=== PATIENT | female | born 1990 | race Caucasian/White ===

== ENCOUNTER 2022-04-28 23:41 | Emergency (ER) | payer MEDICAID, SELFPAY ==
[~2022-04-28] VITALS: Ht 182.9 cm; Wt 106.8 kg
[~2022-04-28 23:41] MED LIST: ADV50250 IH; ESOM20CA PO; IBUP-1984 PO
[2022-04-29 00:40] LABS: BASOPHILS # (AUTO) 0.1 X10'3 (0-0.2); BASOPHILS % (AUTO) 0.9 % (0-1); EOSINOPHILS # (AUTO) 0.8 X10'3 (0-0.9); EOSINOPHILS % (AUTO) 6.4 % (0-6); HEMATOCRIT 38.5 % (35.0-45.0); HEMOGLOBIN 13.2 g/dl (12.0-16.0); LYMPHOCYTES # (AUTO) 2.5 X10'3 (1.1-4.8); LYMPHOCYTES % (AUTO) 19.8 % (21-51); MEAN CORPUSCULAR HEMOGLOBIN 30.5 PG (27.0-31.0); MEAN CORPUSCULAR HGB CONC 34.3 g/dL (33.0-36.5); MEAN PLATELET VOLUME 8.2 FL (7.4-10.4); MONOCYTES # (AUTO) 0.7 X10'3 (0-0.9); MONOCYTES % (AUTO) 5.7 % (2-12); NEUTROPHILS # (AUTO) 8.3 X10'3 (1.8-7.7); NEUTROPHILS % (AUTO) 67.2 % (42-75); PLATELET COUNT 326 X10'3 (140-440); RED BLOOD COUNT 4.33 X10'6 (4.20-5.60); RED CELL DISTRIBUTION WIDTH 12.2 % (11.5-14.5); WHITE BLOOD COUNT 12.4 X10'3 (4.5-11.0)
[2022-04-29 00:47] LABS: ALANINE AMINOTRANSFERASE 38 U/L (12-78); ALBUMIN 3.9 G/DL (3.4-5.0); ALKALINE PHOSPHATASE 91 IU/L (46-116); ANION GAP 10 (8-16); ASPARTATE AMINO TRANSFERASE 18 U/L (10-37); BILIRUBIN,TOTAL 0.3 MG/DL (0.1-1.0); BLOOD UREA NITROGEN 12 MG/DL (7-18); BUN/CREATININE RATIO 17.1 (6.6-38.0); CALCIUM 9.3 MG/DL (8.5-10.1); CHLORIDE 103 MMOL/L (99-107); GLUCOSE 99 MG/DL (70-104); POTASSIUM 4.4 MMOL/L (3.5-5.1); SODIUM 135 MMOL/L (135-145); TOTAL CARBON DIOXIDE 22.3 MMOL/L (24-32); eGFR > 90 ML/MIN
[2022-04-29] MEDS ORDERED: predniSONE 20 mg tablet PO ONE (03:45)
[2022-04-29] MEDS ORDERED: albuterol 2.5 MG/3 ML nebule NEB ONE (03:45)
[2022-04-29] MEDS ORDERED: LIDOcaine 4% (40 mg/ml) topical solution 50ml MM ONE (03:55)
[2022-04-29] MEDS ORDERED: acetaminophen 325mg tablet PO STA (04:24)
[2022-04-29] MEDS ORDERED: AZIT-31 PO (05:36)
[2022-04-29] MEDS ORDERED: BUDE10.27 INH (05:36)
[2022-04-29] MEDS ORDERED: ALBU18HF2 INH (05:36)
[2022-04-29] MEDS ORDERED: azithromycin 250mg tablet PO ONE (05:40)
[2022-04-29 05:53] VITALS: BP 132/70
== END 2022-04-29 05:55 | disposition home or self-care (01) ==
LOC: ER 23:42
DX: B34.9 Viral infection, unspecified (principal); R11.2 Nausea with vomiting, unspecified; J20.9 Acute bronchitis, unspecified
CPT/HCPCS: 36415; 71045; 80053; 83605; 84145; 85025; 87502; 87503; 94640; 99284; J7512; 87040; 94760

== ENCOUNTER 2022-07-27 12:57 | Emergency (ER) | payer MEDICAID ==
[~2022-07-27] VITALS: Ht 182.9 cm; Wt 101.0 kg
[~2022-07-27 12:57] MED LIST changes: +ALBU18HF2 INH; +BUDE10.27 INH
[2022-07-27 13:32] LABS: BASOPHILS # (AUTO) 0.1 X10'3 (0-0.2); BASOPHILS % (AUTO) 1.4 % (0-1); EOSINOPHILS # (AUTO) 0.5 X10'3 (0-0.9); HEMATOCRIT 40.5 % (35.0-45.0); HEMOGLOBIN 13.8 g/dl (12.0-16.0); MEAN CORPUSCULAR VOLUME 88.2 FL (78-98); MEAN PLATELET VOLUME 8.2 FL (7.4-10.4); MONOCYTES # (AUTO) 0.4 X10'3 (0-0.9); MONOCYTES % (AUTO) 4.8 % (2-12); NEUTROPHILS % (AUTO) 62.8 % (42-75); PLATELET COUNT 352 X10'3 (140-440); RED BLOOD COUNT 4.59 X10'6 (4.20-5.60); RED CELL DISTRIBUTION WIDTH 12.9 % (11.5-14.5); WHITE BLOOD COUNT 7.9 X10'3 (4.5-11.0)
[2022-07-27 13:51] LABS: ALANINE AMINOTRANSFERASE 50 U/L (12-78); ALBUMIN 4.1 G/DL (3.4-5.0); ALKALINE PHOSPHATASE 90 IU/L (46-116); ANION GAP 9 (8-16); ASPARTATE AMINO TRANSFERASE 20 U/L (10-37); BILIRUBIN,TOTAL 0.5 MG/DL (0.1-1.0); BLOOD UREA NITROGEN 7 MG/DL (7-18); BUN/CREATININE RATIO 11.1 (10.0-20.0); CALCIUM 9.2 MG/DL (8.5-10.1); CHLORIDE 103 MMOL/L (99-107); CREATININE 0.63 MG/DL (0.40-0.90); GLUCOSE 91 MG/DL (70-104); POTASSIUM 3.8 MMOL/L (3.5-5.1); SODIUM 138 MMOL/L (135-145); TOTAL CARBON DIOXIDE 25.6 MMOL/L (24-32); TOTAL PROTEIN 8.1 G/DL (6.4-8.2); eGFR > 90 ML/MIN
[2022-07-27 14:47] VITALS: BP 112/69
[2022-07-27 16:01] LABS: URINE HCG NEGATIVE (NEG)
[2022-07-27 16:08] LABS: CLARITY,URINE CLEAR (Clear); COLOR,URINE YELLOW (Yellow); GLUCOSE, URINE NEGATIVE (Neg); KETONES,URINE TRACE mg/dl (Neg); LEUKOCYTE ESTERASE ,URINE NEGATIVE (Neg); NITRITES, URINE NEGATIVE (Neg); OCCULT BLOOD,URINE NEGATIVE (Neg); PH,URINE 5.5 (4.8-8.0); PROTEIN,URINE NEGATIVE (Neg); UROBILINOGEN,URINE 0.2 E.U/dL (0.2-1.0)
[2022-07-27 16:13] LABS: UA COLLECTION TYPE CLN CATCH MIDSTREAM
== END 2022-07-27 17:09 | disposition home or self-care (01) ==
LOC: ER 12:58
DX: R07.89 Other chest pain (principal); M54.2 Cervicalgia; R68.84 Jaw pain; R20.0 Anesthesia of skin
CPT/HCPCS: 36415; 80053; 81003; 81025; 83735; 83880; 84484; 85025; 93005; 99284

== ENCOUNTER 2022-08-28 21:37 | Emergency (ER) | payer MEDICAID ==
[~2022-08-28] VITALS: Ht 182.9 cm; Wt 107.8 kg
[2022-08-28 22:04] VITALS: BP 108/61
[2022-08-28 22:37] LABS: CLARITY,URINE SLIGHTLY CLOUDY (Clear); COLOR,URINE YELLOW (Yellow); GLUCOSE, URINE NEGATIVE (Neg); KETONES,URINE NEGATIVE (Neg); LEUKOCYTE ESTERASE ,URINE NEGATIVE (Neg); NITRITES, URINE NEGATIVE (Neg); OCCULT BLOOD,URINE LARGE (Neg); PROTEIN,URINE NEGATIVE (Neg); UROBILINOGEN,URINE 0.2 E.U/dL (0.2-1.0)
[2022-08-28 22:38] LABS: URINE HCG NEGATIVE (NEG)
[2022-08-28 22:42] LABS: UA COLLECTION TYPE CLN CATCH MIDSTREAM
[2022-08-28 22:50] LABS: CAL OXALATE CRYSTALS 4+ /HPF (NEGATIVE); MUCUS STRANDS MANY /LPF (Neg); SQUAMOUS EPITHELIAL CELL,UR MODERATE /LPF (FEW)
[2022-08-28 22:51] LABS: BACTERIA,URINE FEW /HPF (Neg); WBC,URINE 0-4 /HPF (0-4)
[2022-08-29] MEDS ORDERED: ondansetron 4mg rapidly disintigrating tab PO ONE (00:45)
[2022-08-29] MEDS ORDERED: acetaminophen 325mg tablet PO ONE (00:45)
[2022-08-29] MEDS ORDERED: LIDO-15 TD (17:38)
[2022-08-29] MEDS ORDERED: IBUP-1986 PO (17:38)
== END 2022-08-29 01:53 | disposition left against medical advice (07) ==
LOC: ER 21:38
DX: R10.9 Unspecified abdominal pain (principal); R11.2 Nausea with vomiting, unspecified; Z91.040 Latex allergy status; Z79.899 Other long term (current) drug therapy; Z79.1 Long term (current) use of non-steroidal anti-inflammatories (NSAID); Z79.2 Long term (current) use of antibiotics
CPT/HCPCS: 81001; 81025; 99283

== ENCOUNTER 2022-08-29 16:37 | Emergency (ER) | payer MEDICAID ==
[~2022-08-29] VITALS: Ht 182.9 cm; Wt 101.0 kg
[2022-08-29 16:41] VITALS: BP 137/84
[2022-08-29 17:16] LABS: BASOPHILS # (AUTO) 0.1 X10'3 (0-0.2); EOSINOPHILS # (AUTO) 0.5 X10'3 (0-0.9); EOSINOPHILS % (AUTO) 6.2 % (0-6); HEMATOCRIT 38.3 % (35.0-45.0); LYMPHOCYTES % (AUTO) 26.3 % (21-51); MEAN CORPUSCULAR HEMOGLOBIN 30.4 PG (27.0-31.0); MEAN CORPUSCULAR VOLUME 89.4 FL (78-98); MONOCYTES # (AUTO) 0.4 X10'3 (0-0.9); NEUTROPHILS # (AUTO) 4.7 X10'3 (1.8-7.7); NEUTROPHILS % (AUTO) 61.5 % (42-75); PLATELET COUNT 337 X10'3 (140-440); RED BLOOD COUNT 4.28 X10'6 (4.20-5.60); RED CELL DISTRIBUTION WIDTH 13.3 % (11.5-14.5); WHITE BLOOD COUNT 7.7 X10'3 (4.5-11.0)
[2022-08-29 17:33] LABS: ALANINE AMINOTRANSFERASE 28 U/L (12-78); ALBUMIN 3.6 G/DL (3.4-5.0); ALKALINE PHOSPHATASE 87 IU/L (46-116); ANION GAP 8 (8-16); ASPARTATE AMINO TRANSFERASE 13 U/L (10-37); BILIRUBIN,TOTAL 0.3 MG/DL (0.1-1.0); BLOOD UREA NITROGEN 10 MG/DL (7-18); BUN/CREATININE RATIO 13.2 (10.0-20.0); CALCIUM 8.6 MG/DL (8.5-10.1); CHLORIDE 106 MMOL/L (99-107); CREATININE 0.76 MG/DL (0.40-0.90); GLUCOSE 109 MG/DL (70-104); POTASSIUM 3.4 MMOL/L (3.5-5.1); SODIUM 138 MMOL/L (135-145); TOTAL CARBON DIOXIDE 24.1 MMOL/L (24-32); TOTAL PROTEIN 7.3 G/DL (6.4-8.2); eGFR 88 ML/MIN
[2022-08-29] MEDS ORDERED: LIDOcaine 5% patch TP STA (17:34)
[2022-08-29] MEDS ORDERED: ketorolac trometh inj. 60 MG/2 ML VIAL IM ONE (17:35)
[2022-08-29] MEDS ORDERED: IBUP-1986 PO (17:38)
[2022-08-29] MEDS ORDERED: LIDO-15 TD (17:38)
[2022-08-29] MEDS ORDERED: ketorolac trometh. 30mg/ml inj. IM ONE (17:40)
== END 2022-08-29 18:10 | disposition home or self-care (01) ==
LOC: ER 16:38
DX: S30.1XXA Contusion of abdominal wall, initial encounter (principal); Z91.040 Latex allergy status; Z79.899 Other long term (current) drug therapy; X58.XXXA Exposure to other specified factors, initial encounter; Y93.89 Activity, other specified; Y92.89 Other specified places as the place of occurrence of the external cause; Y99.8 Other external cause status
CPT/HCPCS: 36415; 76770; 80053; 85025; 96372; 99285; J1885

== ENCOUNTER 2022-11-10 15:42 | Emergency (ER) | payer MEDICAID ==
[~2022-11-10] VITALS: Ht 182.9 cm; Wt 97.2 kg
[~2022-11-10 15:42] MED LIST changes: +IBUP-1986 PO; +LIDO-15 TD
[2022-11-10] MEDS ORDERED: normal saline 1000ML IV soln IVB ONE (18:40)
[2022-11-10] MEDS ORDERED: ondansetron/PF 4mg/2ml inj IV ONE (18:40)
[2022-11-10] MEDS ORDERED: dicyclomine 10 MG capsule PO ONE (19:25)
[2022-11-10] MEDS ORDERED: loperamide 2mg capsule PO ONE (19:25)
[2022-11-10] MEDS ORDERED: famotidine/PF 10 mg/ml inj IV ONE (19:25)
[2022-11-10 19:46] LABS: URINE HCG NEGATIVE (NEG)
[2022-11-10 19:49] LABS: BASOPHILS # (AUTO) 0.1 X10'3 (0-0.2); EOSINOPHILS # (AUTO) 0.8 X10'3 (0-0.9); EOSINOPHILS % (AUTO) 8.4 % (0-6); HEMATOCRIT 40.7 % (35.0-45.0); HEMOGLOBIN 13.9 g/dl (12.0-16.0); LYMPHOCYTES # (AUTO) 2.8 X10'3 (1.1-4.8); LYMPHOCYTES % (AUTO) 30.9 % (21-51); MEAN CORPUSCULAR HEMOGLOBIN 30.6 PG (27.0-31.0); MEAN CORPUSCULAR HGB CONC 34.2 g/dL (33.0-36.5); MEAN CORPUSCULAR VOLUME 89.3 FL (78-98); MEAN PLATELET VOLUME 8.1 FL (7.4-10.4); MONOCYTES # (AUTO) 0.6 X10'3 (0-0.9); NEUTROPHILS # (AUTO) 4.9 X10'3 (1.8-7.7); NEUTROPHILS % (AUTO) 53.7 % (42-75); PLATELET COUNT 325 X10'3 (140-440); RED BLOOD COUNT 4.55 X10'6 (4.20-5.60); RED CELL DISTRIBUTION WIDTH 12.9 % (11.5-14.5); WHITE BLOOD COUNT 9.1 X10'3 (4.5-11.0)
[2022-11-10 19:51] LABS: COLOR,URINE YELLOW (Yellow); GLUCOSE, URINE NEGATIVE (Neg); KETONES,URINE NEGATIVE (Neg); LEUKOCYTE ESTERASE ,URINE NEGATIVE (Neg); NITRITES, URINE NEGATIVE (Neg); OCCULT BLOOD,URINE NEGATIVE (Neg); PROTEIN,URINE NEGATIVE (Neg); UROBILINOGEN,URINE 0.2 E.U/dL (0.2-1.0)
[2022-11-10] MEDS ORDERED: proCHLORperazine 10 MG/2 ml inj IV ONE (19:55)
[2022-11-10 19:58] LABS: CLARITY,URINE SLIGHTLY CLOUDY (Clear); UA COLLECTION TYPE CLN CATCH MIDSTREAM
[2022-11-10 19:59] LABS: BACTERIA,URINE NONE SEEN /HPF (Neg); MUCUS STRANDS MANY /LPF (Neg); RBC,URINE NONE SEEN /HPF (0-2); SQUAMOUS EPITHELIAL CELL,UR MODERATE /LPF (FEW); WBC,URINE 0-4 /HPF (0-4)
[2022-11-10 20:00] VITALS: BP 105/63
[2022-11-10] MEDS ORDERED: normal saline 1000ml 1,000 ML IV ONE (20:00)
[2022-11-10 20:04] LABS: ALANINE AMINOTRANSFERASE 37 U/L (12-78); ALBUMIN 3.8 G/DL (3.4-5.0); ALKALINE PHOSPHATASE 86 IU/L (46-116); ANION GAP 10 (8-16); ASPARTATE AMINO TRANSFERASE 16 U/L (10-37); BILIRUBIN,TOTAL 0.2 MG/DL (0.1-1.0); BLOOD UREA NITROGEN 11 MG/DL (7-18); BUN/CREATININE RATIO 13.3 (10.0-20.0); CALCIUM 8.8 MG/DL (8.5-10.1); CHLORIDE 105 MMOL/L (99-107); CREATININE 0.83 MG/DL (0.40-0.90); GLUCOSE 86 MG/DL (70-104); LIPASE 74 U/L (73-393); POTASSIUM 3.6 MMOL/L (3.5-5.1); SODIUM 140 MMOL/L (135-145); TOTAL CARBON DIOXIDE 25.5 MMOL/L (24-32); TOTAL PROTEIN 7.5 G/DL (6.4-8.2); eGFR 80 ML/MIN
[2022-11-10] MEDS ORDERED: LOPE1TAB46 PO (20:25)
[2022-11-10] MEDS ORDERED: PROC-8 PO (20:25)
== END 2022-11-10 21:01 | disposition home or self-care (01) ==
LOC: ER 15:43
DX: A08.39 Other viral enteritis (principal); Z91.040 Latex allergy status; Z79.899 Other long term (current) drug therapy; Z79.1 Long term (current) use of non-steroidal anti-inflammatories (NSAID); Z79.2 Long term (current) use of antibiotics; Z90.49 Acquired absence of other specified parts of digestive tract
CPT/HCPCS: 36415; 80053; 81001; 81025; 83690; 85025; 96361; 96374; 96375; 99284; J0780; J2405; J3490; J7030

== ENCOUNTER 2023-12-16 19:39 | Emergency (ER) | payer MEDICAID ==
[~2023-12-16] VITALS: Ht 182.9 cm; Wt 120.5 kg
[~2023-12-16 19:39] MED LIST changes: +LOPE1TAB46 PO; +PROC-8 PO
[2023-12-16 19:41] VITALS: TEMP 99.5
[2023-12-16 20:09] LABS: BILIRUBIN,URINE NEGATIVE (Neg); CLARITY,URINE CLOUDY (Clear); COLOR,URINE STRAW (Yellow); GLUCOSE, URINE NEGATIVE (Neg); KETONES,URINE NEGATIVE (Neg); LEUKOCYTE ESTERASE ,URINE NEGATIVE (Neg); NITRITES, URINE NEGATIVE (Neg); OCCULT BLOOD,URINE NEGATIVE (Neg); PROTEIN,URINE NEGATIVE (Neg); UROBILINOGEN,URINE 0.2 E.U/dL (0.2-1.0)
[2023-12-16 20:10] LABS: URINE HCG NEGATIVE (NEG)
[2023-12-16 20:12] LABS: UA COLLECTION TYPE CLN CATCH MIDSTREAM
[2023-12-16 20:30] LABS: BASOPHILS # (AUTO) 0.1 X10'3 (0-0.2); BASOPHILS % (AUTO) 0.7 % (0-1); EOSINOPHILS # (AUTO) 0.4 X10'3 (0-0.9); EOSINOPHILS % (AUTO) 4.5 % (0-6); HEMATOCRIT 39.7 % (35.0-45.0); HEMOGLOBIN 13.7 g/dl (12.0-16.0); LYMPHOCYTES # (AUTO) 2.8 X10'3 (1.1-4.8); LYMPHOCYTES % (AUTO) 30.2 % (21-51); MEAN CORPUSCULAR HGB CONC 34.4 g/dL (33.0-36.5); MEAN CORPUSCULAR VOLUME 90.1 FL (78-98); MEAN PLATELET VOLUME 7.7 FL (7.4-10.4); MONOCYTES # (AUTO) 0.6 X10'3 (0-0.9); MONOCYTES % (AUTO) 6.3 % (2-12); NEUTROPHILS # (AUTO) 5.3 X10'3 (1.8-7.7); NEUTROPHILS % (AUTO) 58.3 % (42-75); PLATELET COUNT 342 X10'3 (140-440); RED CELL DISTRIBUTION WIDTH 12.9 % (11.5-14.5); WHITE BLOOD COUNT 9.2 X10'3 (4.5-11.0)
[2023-12-16 20:32] LABS: BACTERIA,URINE FEW /HPF (Neg); RBC,URINE 0-2 /HPF (0-2); WBC,URINE 0-4 /HPF (0-4)
[2023-12-16 20:33] LABS: AMORPHOUS PHOSPHATES 3+; SQUAMOUS EPITHELIAL CELL,UR MODERATE /LPF (FEW)
[2023-12-16 20:33] LABS: ALANINE AMINOTRANSFERASE 45 U/L (12-78); ALBUMIN 3.5 G/DL (3.4-5.0); ALBUMIN/GLOBULIN RATIO 0.9 (1.1-1.5); ALKALINE PHOSPHATASE 94 IU/L (46-116); ANION GAP 9 (8-16); ASPARTATE AMINO TRANSFERASE 17 U/L (10-37); BILIRUBIN,TOTAL 0.3 MG/DL (0.1-1.0); BLOOD UREA NITROGEN 9 MG/DL (7-18); BUN/CREATININE RATIO 9.6 (10.0-20.0); CALCIUM 9.1 MG/DL (8.5-10.1); CHLORIDE 105 MMOL/L (99-107); CREATININE 0.94 MG/DL (0.40-0.90); GLUCOSE 91 MG/DL (70-104); LIPASE 29 U/L (16-77); POTASSIUM 3.7 MMOL/L (3.5-5.1); SODIUM 138 MMOL/L (135-145); TOTAL CARBON DIOXIDE 23.7 MMOL/L (24-32); TOTAL PROTEIN 7.4 G/DL (6.4-8.2); eCRCL 98 ML/MIN; eGFR 69 ML/MIN
[2023-12-16] MEDS ORDERED: METR-159 PO (21:50)
[2023-12-16] MEDS ORDERED: DOXY-1 PO (21:50)
[2023-12-16] MEDS: CefTRIAXone 1000mg IM Kit (w/lidocaine diluent) IM ONE (22:01)
[2023-12-16 22:14] VITALS: BP 120/66; PULSE 67; RESP 16; O2SAT 99
== END 2023-12-16 22:14 | disposition home or self-care (01) ==
LOC: ER 19:39
DX: N73.0 Acute parametritis and pelvic cellulitis (principal); Z91.09 Other allergy status, other than to drugs and biological substances; Z91.040 Latex allergy status; Z91.013 Allergy to seafood; Z79.899 Other long term (current) drug therapy; Z79.1 Long term (current) use of non-steroidal anti-inflammatories (NSAID); Z90.49 Acquired absence of other specified parts of digestive tract
CPT/HCPCS: 36415; 71045; 80053; 81001; 81025; 83605; 83690; 84145; 85025; 87040; 87070; 87210; 93005; 96372; 99285; J0696; 87186

== ENCOUNTER 2023-12-26 16:50 | Emergency (ER) | payer MEDICAID ==
[~2023-12-26] VITALS: Ht 182.9 cm; Wt 112.3 kg
[~2023-12-26 16:50] MED LIST changes: +DOXY-1 PO; +METR-159 PO
[2023-12-26] MEDS: ondansetron 4mg rapidly disintigrating tab PO ONE (17:44)
[2023-12-26] MEDS: ketorolac trometh 30MG/ML vial 30 MG/ML VIAL IM ONE (17:45)
[2023-12-26 17:55] VITALS: TEMP 99.8
[2023-12-26] MEDS ORDERED: ONDA-243 PO (18:48)
[2023-12-26] MEDS ORDERED: NIRM1TAB9 PO (18:56)
[2023-12-26 19:09] VITALS: BP 115/64; PULSE 72; RESP 16; O2SAT 97
== END 2023-12-26 19:07 | disposition home or self-care (01) ==
LOC: ER 16:50
DX: U07.1 COVID-19 (principal); Z91.040 Latex allergy status; Z91.013 Allergy to seafood; Z88.8 Allergy status to other drugs, medicaments and biological substances; Z91.09 Other allergy status, other than to drugs and biological substances; Z79.52 Long term (current) use of systemic steroids; Z79.51 Long term (current) use of inhaled steroids; Z79.1 Long term (current) use of non-steroidal anti-inflammatories (NSAID); Z79.2 Long term (current) use of antibiotics; Z79.899 Other long term (current) drug therapy; Z90.49 Acquired absence of other specified parts of digestive tract
CPT/HCPCS: 36415; 87811; 96372; 99283; J1885

== ENCOUNTER 2024-01-05 09:29 | Emergency (ER) | payer MEDICAID ==
[~2024-01-05] VITALS: Ht 182.9 cm; Wt 110.2 kg
[~2024-01-05 09:29] MED LIST changes: -DOXY-1 PO; -METR-159 PO; +NIRM1TAB9 PO; +ONDA-243 PO
[2024-01-05 10:13] LABS: BASOPHILS % (AUTO) 0.2 % (0-1); EOSINOPHILS # (AUTO) 0.1 X10'3 (0-0.9); EOSINOPHILS % (AUTO) 0.8 % (0-6); HEMATOCRIT 44.6 % (35.0-45.0); HEMOGLOBIN 15.3 g/dl (12.0-16.0); LYMPHOCYTES # (AUTO) 0.5 X10'3 (1.1-4.8); MEAN CORPUSCULAR HEMOGLOBIN 30.2 PG (27.0-31.0); MEAN CORPUSCULAR HGB CONC 34.2 g/dL (33.0-36.5); MEAN CORPUSCULAR VOLUME 88.2 FL (78-98); MEAN PLATELET VOLUME 7.9 FL (7.4-10.4); MONOCYTES # (AUTO) 0.4 X10'3 (0-0.9); MONOCYTES % (AUTO) 3.8 % (2-12); NEUTROPHILS # (AUTO) 8.8 X10'3 (1.8-7.7); NEUTROPHILS % (AUTO) 90.2 % (42-75); PLATELET COUNT 414 X10'3 (140-440); RED BLOOD COUNT 5.05 X10'6 (4.20-5.60); RED CELL DISTRIBUTION WIDTH 12.5 % (11.5-14.5); WHITE BLOOD COUNT 9.7 X10'3 (4.5-11.0)
[2024-01-05 10:23] LABS: ALANINE AMINOTRANSFERASE 59 U/L (12-78); ALBUMIN 3.8 G/DL (3.4-5.0); ALBUMIN/GLOBULIN RATIO 0.9 (1.1-1.5); ALKALINE PHOSPHATASE 97 IU/L (46-116); ANION GAP 14 (8-16); ASPARTATE AMINO TRANSFERASE 24 U/L (10-37); BILIRUBIN,TOTAL 0.8 MG/DL (0.1-1.0); BLOOD UREA NITROGEN 14 MG/DL (7-18); BUN/CREATININE RATIO 18.2 (10.0-20.0); CALCIUM 9.2 MG/DL (8.5-10.1); CHLORIDE 104 MMOL/L (99-107); CREATININE 0.77 MG/DL (0.40-0.90); GLUCOSE 124 MG/DL (70-104); LIPASE 17 U/L (16-77); POTASSIUM 3.9 MMOL/L (3.5-5.1); SODIUM 138 MMOL/L (135-145); TOTAL CARBON DIOXIDE 20.4 MMOL/L (24-32); TOTAL PROTEIN 8.1 G/DL (6.4-8.2); eCRCL 120 ML/MIN; eGFR 86 ML/MIN
[2024-01-05] MEDS: ketorolac trometh 30MG/ML vial 30 MG/ML VIAL IV ONE (11:45)
[2024-01-05] MEDS: ondansetron/PF 4mg/2ml inj IV ONE ×2 (11:45→14:27)
[2024-01-05] MEDS: normal saline 1000ml 1,000 ML IV ONE (11:46)
[2024-01-05 12:20] LABS: URINE HCG NEGATIVE (NEG)
[2024-01-05 12:21] LABS: BILIRUBIN,URINE SMALL (Neg); CLARITY,URINE SLIGHTLY CLOUDY (Clear); GLUCOSE, URINE NEGATIVE (Neg); KETONES,URINE NEGATIVE (Neg); LEUKOCYTE ESTERASE ,URINE NEGATIVE (Neg); NITRITES, URINE NEGATIVE (Neg); OCCULT BLOOD,URINE NEGATIVE (Neg); PROTEIN,URINE TRACE mg/dl (Neg); UROBILINOGEN,URINE 0.2 E.U/dL (0.2-1.0)
[2024-01-05 12:26] LABS: COLOR,URINE DARK YELLOW (Yellow); UA COLLECTION TYPE NON-SPECIFIED
[2024-01-05 12:29] LABS: WBC,URINE 0-4 /HPF (0-4)
[2024-01-05 12:30] LABS: BACTERIA,URINE FEW /HPF (Neg); MUCUS STRANDS MANY /LPF (Neg); RBC,URINE NONE SEEN /HPF (0-2); SQUAMOUS EPITHELIAL CELL,UR FEW /LPF (FEW)
[2024-01-05 12:33] VITALS: TEMP 99.7
[2024-01-05] MEDS ORDERED: ONDA-243 PO (13:56)
[2024-01-05] MEDS: ondansetron 4mg rapidly disintigrating tab PO ONE (14:28)
[2024-01-05] MEDS: normal saline 1000ML IV soln IVB ONE (14:28)
[2024-01-05 15:52] VITALS: BP 110/74; PULSE 89; RESP 16; O2SAT 98
== END 2024-01-05 15:55 | disposition home or self-care (01) ==
LOC: ER 09:29
DX: K52.9 Noninfective gastroenteritis and colitis, unspecified (principal); Z91.09 Other allergy status, other than to drugs and biological substances; Z91.040 Latex allergy status; Z91.013 Allergy to seafood; Z79.899 Other long term (current) drug therapy; Z79.1 Long term (current) use of non-steroidal anti-inflammatories (NSAID); Z90.49 Acquired absence of other specified parts of digestive tract
CPT/HCPCS: 36415; 80053; 81001; 81025; 83690; 85025; 96361; 96374; 96375; 96376; 99285; J1885; J2405; J7030

== ENCOUNTER 2024-05-27 17:15 | Emergency (ER) | payer MEDICAID ==
[~2024-05-27] VITALS: Ht 182.9 cm; Wt 110.3 kg
[2024-05-27 17:30] VITALS: BP 115/80; PULSE 76; RESP 18; O2SAT 96
[2024-05-27] MEDS ORDERED: ONDA-245 PO (18:32)
[2024-05-27] MEDS: ibuprofen tablet 400 MG TABLET PO ONE (18:58)
[2024-05-27] MEDS: ondansetron 4mg rapidly disintigrating tab PO ONE (18:58)
[2024-05-27 19:09] VITALS: TEMP 98
== END 2024-05-27 19:21 | disposition home or self-care (01) ==
LOC: ER 17:15
DX: B34.9 Viral infection, unspecified (principal); G35 Multiple sclerosis; Z91.040 Latex allergy status; Z91.013 Allergy to seafood; Z88.8 Allergy status to other drugs, medicaments and biological substances; Z90.49 Acquired absence of other specified parts of digestive tract
CPT/HCPCS: 87502; 87503; 99283